=== PATIENT | male | born 1985 | race Caucasian/White ===

== ENCOUNTER 2021-01-12 18:26 | Emergency (ER) | payer OTHER ==
[~2021-01-12] VITALS: Ht 177.8 cm; Wt 93.9 kg
[2021-01-12 20:03] LABS: Basophils # (auto) 0.1 10 ^3/uL (0-0.2); Eosinophils # (auto) 0 10 ^3/uL (0-0.8); Eosinophils % (auto) 0.3 % (0.0-7.0); Hematocrit 48.6 % (41.0-53.0); Hemoglobin 16.6 g/dL (13.5-17.5); Lymphocytes # (auto) 2.3 10 ^3/uL (0.4-5.4); Lymphocytes % (auto) 24.6 % (10.0-50.0); Mean Corpuscular Hemoglobin 31.5 pg (28.0-32.0); Mean Corpuscular Hgb Conc. 34.2 g/dL (32.0-36.0); Monocytes # (auto) 0.9 10 ^3/uL (0-1.3); Monocytes % (auto) 9.9 % (0.0-12.0); Neutrophils # (auto) 5.9 10 ^3/uL (1.6-8.6); Neutrophils % (auto) 64.2 % (37.0-80.0); Nucleated Red Blood Cells % 0.1 %; Platelet Count (auto) 191 10^3/uL (140-450); Red Blood Cells 5.28 10^6/uL (4.5-5.90); Red Cell Distribution Width 13.6 % (11.8-14.3); White Blood Cell 9.2 10^3/uL (4.4-10.8)
[2021-01-12 20:13] LABS: Albumin 4.5 g/dL (3.4-5.0); Anion Gap 4 (5-15); Blood Urea Nitrogen 9 mg/dL (7-18); Calcium 10.8 mg/dL (8.5-10.1); Carbon Dioxide 30 mmol/L (21-32); Chloride 104 mmol/L (98-107); Glucose 104 mg/dL (74-106); Sodium 138 mmol/L (136-145)
[2021-01-12 20:21] LABS: Alanine Aminotransferase 39 U/L (16-61); Alkaline Phosphatase 60 U/L (45-117); Aspartate Aminotransferase 22 U/L (15-37); BUN/Creatinine Ratio 7.8; Bilirubin, Total 0.5 mg/dL (0.2-1.0); GFR African American 93 mL/min; GFR Non-African American 76 mL/min; Total Protein 8.2 g/dL (6.4-8.2)
[2021-01-13] MEDS ORDERED: ASPirin 325 MG TAB PO ONE
[2021-01-13 00:36] LABS: INR 1.07 (0.9-1.15)
[2021-01-13 01:02] LABS: Urine WBC None Seen /hpf (0 - 3)
[2021-01-13] MEDS ORDERED: KETOROLAC TROMETH 60MG/2ML VIAL IM ONE (01:15)
[2021-01-13] MEDS ORDERED: fentaNYL CITRATE 100 MCG/2 ML VL IM ONE (01:15)
[2021-01-13 01:37] LABS: Alcohol, Urine < 3.0 mg/dL (0-10); Amphetamine Screen, Urine NEGATIVE (NEGATIVE); Barbiturate Scree,Urine NEGATIVE (NEGATIVE); Benzodiazephine Screen, Urine NEGATIVE (NEGATIVE); Cocaine Screen, Urine NEGATIVE (NEGATIVE); Phencyclidine Screen, Urine NEGATIVE (NEGATIVE)
[2021-01-13 01:42] LABS: Urine Bacteria NONE SEEN /hpf (None Seen); Urine Blood Negative /uL (Negative); Urine Mucus FEW (None Seen); Urine Specific Gravity 1.013 (1.001-1.035)
[2021-01-13 01:45] LABS: Cannabinoid Screen, Urine POSITIVE (NEGATIVE); Opiate Scree,Urine NEGATIVE (NEGATIVE)
[2021-01-13 01:47] VITALS: BP 97/61
== END 2021-01-13 04:26 | disposition home or self-care (01) ==
LOC: ER 18:29
DX: R07.89 Other chest pain (principal); E11.9 Type 2 diabetes mellitus without complications; R42 Dizziness and giddiness; F12.10 Cannabis abuse, uncomplicated
CPT/HCPCS: 36415; 71045; 71046; 80053; 80307; 81001; 84484; 85025; 85610; 93005; J1885

== ENCOUNTER 2024-08-01 10:19 | Emergency (ER) | payer SELFPAY ==
[~2024-08-01] VITALS: Ht 177.8 cm; Wt 77.2 kg
[2024-08-01 10:54] VITALS: PULSE 76; RESP 18; O2SAT 96
[2024-08-01] MEDS: SODIUM CHLORIDE 0.9% 1,000 ML IVB ONE (10:56)
[2024-08-01] MEDS: ONDANSETRON HCL 4 MG/2 ML VIAL IV ONE (10:56)
[2024-08-01 11:06] LABS: Basophils # (auto) 0 10 ^3/uL (0-0.2); Basophils % (auto) 0.4 % (0.0-2.0); Eosinophils # (auto) 0 10 ^3/uL (0-0.8); Hematocrit 49.6 % (41.0-53.0); Hemoglobin 16.9 g/dL (13.5-17.5); Lymphocytes # (auto) 1.3 10 ^3/uL (0.4-5.4); Lymphocytes % (auto) 13.1 % (10.0-50.0); Mean Corpuscular Hemoglobin 32.2 pg (28.0-32.0); Mean Corpuscular Hgb Conc. 34.1 g/dL (32.0-36.0); Mean Corpuscular Volume 94.5 fL (80.0-100.0); Monocytes # (auto) 1.5 10 ^3/uL (0-1.3); Monocytes % (auto) 14.7 % (0.0-12.0); Neutrophils # (auto) 7.4 10 ^3/uL (1.6-8.6); Neutrophils % (auto) 71.8 % (37.0-80.0); Nucleated Red Blood Cells % 0.1 %; Platelet Count (auto) 191 10^3/uL (140-450); Red Blood Cells 5.25 10^6/uL (4.5-5.90); Red Cell Distribution Width 13.6 % (11.8-14.3); White Blood Cell 10.3 10^3/uL (4.4-10.8)
[2024-08-01 11:23] LABS: Alanine Aminotransferase 29 U/L (7-40); Albumin 4.6 g/dL (3.2-4.8); Alkaline Phosphatase 81 U/L (46-116); Anion Gap 6 (5-15); Aspartate Aminotransferase 30 U/L (13-40); BUN/Creatinine Ratio 6.8 (10.0-20.0); Blood Urea Nitrogen 7 mg/dL (9-23); Calcium 9.6 mg/dL (8.7-10.4); Carbon Dioxide 28 mmol/L (20-31); Chloride 102 mmol/L (98-107); Glucose 114 mg/dL (74-106); Lipase 44 U/L (12-53); Magnesium 2.1 mg/dL (1.6-2.6); Sodium 136 mmol/L (136-145)
[2024-08-01 11:24] LABS: Bilirubin, Total 0.3 mg/dL (0.2-1.0); Total Protein 7.3 g/dL (5.7-8.2)
[2024-08-01 12:15] LABS: Urine Bacteria None Seen /hpf (None Seen)
[2024-08-01 12:36] LABS: Urine Blood Negative /uL (Negative); Urine Clarity Clear (Clear); Urine Color Yellow (Yellow); Urine Mucus FEW (None Seen); Urine Protein, UAD 1+ (Negative); Urine Urobilinogen Normal (Negative); Urine WBC 1 /hpf (0 - 3)
[2024-08-01 12:42] LABS: Amphetamine Screen, Urine Pos (NEGATIVE); Barbiturate Scree,Urine Neg (NEGATIVE); Benzodiazephine Screen, Urine Neg (NEGATIVE); Cocaine Screen, Urine Pos (NEGATIVE)
[2024-08-01 12:43] LABS: Cannabinoid Screen, Urine Pos (NEGATIVE); Opiate Scree,Urine Neg (NEGATIVE)
[2024-08-01 12:44] LABS: Phencyclidine Screen, Urine Neg (NEGATIVE)
[2024-08-01 12:54] LABS: COVID19 ANTIGEN SOFIA FIA NEGATIVE (NEGATIVE)
[2024-08-01 12:55] LABS: Rapid Influenza A Negative (Negative); Rapid Influenza B Negative (Negative)
[2024-08-01] MEDS ORDERED: ACET-1080 PO (13:14)
[2024-08-01] MEDS ORDERED: LORA-655 PO (13:14)
[2024-08-01] MEDS ORDERED: PROC10TA6 PO (13:14)
[2024-08-01] MEDS ORDERED: BACDST PO (13:14)
[2024-08-01 13:33] VITALS: BP 142/87; PULSE 78; RESP 17; TEMP 98.7; O2SAT 97
== END 2024-08-01 13:34 | disposition home or self-care (01) ==
LOC: ER 10:19
DX: K52.9 Noninfective gastroenteritis and colitis, unspecified (principal); J01.10 Acute frontal sinusitis, unspecified; E86.0 Dehydration; F15.90 Other stimulant use, unspecified, uncomplicated; F12.10 Cannabis abuse, uncomplicated
CPT/HCPCS: 36415; 70210; 71046; 80053; 80307; 81001; 83690; 83735; 85025; 87426; 87804; 96361; 96374; 99284; J2405; J7030

== ENCOUNTER 2024-10-03 07:01 | Emergency (ER) | payer MEDICAID, OTHER ==
[~2024-10-03] VITALS: Ht 177.8 cm; Wt 88.6 kg
[~2024-10-03 07:01] MED LIST: ACET-1080 PO; BACDST PO; LORA-655 PO; PROC10TA6 PO
--- NOTE | 2024-10-03 07:32 | ED.PDOC ---
History of Present Illness HPI Comments 39 y/o M, with a Hx of liver cirrhosis, right shoulder Sx, and polysubstance abuse, presents with c/o right-lower chest wall/rib pain for 1x day, today. Patient endorses on onset of symptoms following swinging a bat, yesterday, and hitting it, while still holding onto it, against a metal pole. Patient comments on pain being constant since then. He states on no additional relevant or pertinent Hx along with any recent stressors, additional injuries, strenuous activities, travel, sick contact, or substance use/exposure. He denies having any palpitations, arm pain, shortness of breath, nausea, vomiting, fever, chills, or other associated symptoms or modifiers at this time. Chief Complaint: Chest Wall Injury Time Seen by MD: 07:20 Primary Care Provider: UNKNOWN Reviewed Notes: Nurses Notes, Medications, Allergies Allergies: Coded Allergies: No Known Drug Allergy (Verified Allergy, Unknown, 01/12/21) Home Meds Active Scripts Lorazepam (Ativan) 0.5 Mg Tab, 1 TAB PO BID for 5 Days, #10 TAB Prov:PRIYANKA CHEW MD 08/01/24 Acetaminophen (Tylenol 8 Hour Arthritis) 650 Mg Tab, 650 MG PO QID for 5 Days, #20 TAB Prov:PRIYANKA CHEW MD 08/01/24 Sulfamethoxazole W/Trimethopri (Bactrim Ds Tablet) 1 Tab Tb, 1 TAB PO BID for 10 Days, #20 TAB Prov:PRIYANKA CHEW MD 08/01/24 Prochlorperazine Maleate (Compazine) 10 Mg Tb, 1 TAB PO Q6HR for 5 Days, #20 TAB 3 Refills Prov:PRIYANKA CHEW MD 08/01/24 Information Source: Patient Mode of Arrival: Ambulatory Severity: Moderate Timing: Days Duration: Since onset Prehospital treatment: None Past Medical History PAST MEDICAL HISTORY: Liver (cirrhosis ) Surgical History: Denies all surgeries Family History Family History: Unknown Social History Smoker: Cigarettes Alcohol: Sober Drugs: Denies Drug Use (former polysubstance use ), Cocaine, Marijuana, Methamphetamine Lives In: Home Cardiovascular: reports: chest pain (right lower chest wall pain ) Musculoskeletal: reports: others (right rib pain ) All Other Systems: Reviewed and Negative (negative unless otherwise stated in HPI) Physical Exam General Appearance: Moderate Distress HEENT: Normal ENT Inspection, PERRL/EOMI Neck: Full Range of Motion, Non-Tender Respiratory: Decreased Breath Sounds, No Respiratory Distress, Other (Severe pain right anterior ribs mostly on inspiration expiration after playing baseball) Cardiovascular: No Edema, No JVD, No Murmur, No Gallop, Normal Peripheral Pulses, Regular Rate/Rhythm Breast Exam: Deferred Gastrointestinal: No Organomegaly, Non Tender, No Pulsatile Mass, Normal Bowel Sounds, Soft Genitalia: Deferred Pelvic: Deferred Rectal: Deferred Extremities: No calf tenderness, Normal capillary refill, Normal inspection, Normal range of motion, Non-tender, No pedal edema Neurologic: Alert, cabin outfitter II-XII nml as Tested, No Motor Deficits, Normal Affect, Normal Mood, No Sensory Deficits Cerebellar Function: Normal Reflexes: Normal Skin: Dry, Normal Color, Warm Peripheral Pulses: 1+ carotid (R), 1+ carotid (L) Lymphatic: No Adenopathy Was a procedure done? Was a procedure done?: No EKG EKG : Pulse Rate (adult): 79 [place]: Normal Cardiac Rhythm: NSR Block: None Hypertrophy: None ST: Normal Differential Dx Considerations may include: musculoskeletal pain, costochondritis, [place], PE, ACS, angina, anxiety X-Ray, Labs, Meds, VS Vital Signs Date Time Temp Pulse Resp B/P (MAP) Pulse Ox O2 Delivery O2 Flow Rate FiO2 10/03/24 09:05 77 16 95 Room Air* 0 21 10/03/24 09:05 77 16 116/63 (80) 95 10/03/24 07:32 79 10/03/24 07:08 98.2 84 20 130/54 (79) 99 10/03/24 07:02 79 Lab Test 10/03/24 07:55 10/03/24 07:07 Range/Units Troponin I High Sensitivity < 3 L < 3 L </=54 ng/L White Blood Count 7.5 4.4-10.8 10^3/uL Red Blood Count 4.79 4.5-5.90 10^6/uL Hemoglobin 15.4 13.5-17.5 g/dL Hematocrit 45.7 41.0-53.0 % Mean Corpuscular Volume 95.4 80.0-100.0 fL Mean Corpuscular Hemoglobin 32.2 H 28.0-32.0 pg Mean Corpuscular Hemoglobin Concent 33.7 32.0-36.0 g/dL Red Cell Distribution Width 14.7 H 11.8-14.3 % Platelet Count 235 140-450 10^3/uL Mean Platelet Volume 8.1 6.9-10.8 fL Neutrophils (%) (Auto) 48.5 37.0-80.0 % Lymphocytes (%) (Auto) 30.0 10.0-50.0 % Monocytes (%) (Auto) 17.5 H 0.0-12.0 % Eosinophils (%) (Auto) 3.0 0.0-7.0 % Basophils (%) (Auto) 1.0 0.0-2.0 % Neutrophils # (Auto) 3.7 1.6-8.6 10 ^3/uL Lymphocytes # (Auto) 2.3 0.4-5.4 10 ^3/uL Monocytes # (Auto) 1.3 0-1.3 10 ^3/uL Eosinophils # (Auto) 0.2 0-0.8 10 ^3/uL Basophils # (Auto) 0.1 0-0.2 10 ^3/uL Nucleated Red Blood Cells 0.1 % Prothrombin Time 10.6 9.3-11.8 sec Prothrombin Time INR 1.00 0.9-1.15 Activated Partial Thromboplast Time 29.1 24.5-34.5 SEC Sodium Level 140 136-145 mmol/L Potassium Level 4.5 3.5-5.1 mmol/L Chloride Level 109 H 98-107 mmol/L Carbon Dioxide Level 28 20-31 mmol/L Anion Gap 3 L 5-15 Blood Urea Nitrogen 9 9-23 mg/dL Creatinine 1.05 0.700-1.30 mg/dL Glomerular Filtration Rate Calc 92 >90 mL/min BUN/Creatinine Ratio 8.6 L 10.0-20.0 Serum Glucose 97 74-106 mg/dL Calcium Level 9.7 8.7-10.4 mg/dL Magnesium Level 2.1 1.6-2.6 mg/dL Total Bilirubin 0.4 0.2-1.0 mg/dL Aspartate Amino Transferase (AST) 15 13-40 U/L Alanine Aminotransferase (ALT) 26 7-40 U/L Alkaline Phosphatase 79 46-116 U/L B-Type Natriuretic Peptide 14.08 0-100 pg/mL Total Protein 6.8 5.7-8.2 g/dL Albumin 4.2 3.2-4.8 g/dL Current Medications Medications (Trade) Dose Ordered Sig/Vani Route Start Time Stop Time Status Last Admin Ketorolac Tromethamine (Toradol Injection) 30 mg ONCE ONCE IV 10/03/24 07:45 10/03/24 07:46 DC 10/03/24 09:00 Sodium Chloride 1,000 ml @ 150 mls/hr Q6H40M ONCE IV 10/03/24 07:45 10/03/24 14:24 10/03/24 09:03 R RIB XR:FINDINGS: Medical devices: None. Cardiomediastinal: The heart is normal in size. Pulmonary vasculature is within normal limits. Atherosclerotic calcification of the aortic arch noted. Lungs: No focal pulmonary opacity is seen. The costophrenic angles are clear. No pneumothorax. Bones/soft tissues: No acute abnormality is noted. No acute rib fracture noted. Incidentally noted is a subcentimeter osteochondroma arising from lateral cortex of mid humeral shaft. IMPRESSION: 1. No acute cardiopulmonary disease. X-Ray, Labs, Meds, VS Comment In the emergency department eventful patient came in complaining of chest pain mostly chest wall and ribs after he was playing baseball The chest x-ray is negative no rib fractures EKG shows normal sinus rhythm at 79 CBC normal CMP negative BNP 14 Troponin three and three Magnesium 2.1 INR 1.00 Patient will be discharged home to follow up with his PCP Time of 1ST Reevaluation: 07:50 Reevaluation 1ST: Unchanged Time of 2ND Reevaluation: 12:50 Reevaluation 2ND: Improved Consultation: PCP Patient Education/Counseling: Diagnosis, Treatment, Prognosis, Need For Follow Up Family Education/Counseling: Diagnosis, Treatment, Prognosis, Need For Follow Up, No Family Present Departure 1 Departure Time of Disposition: 12:51 Impression: Primary Impression: Contusion of rib on right side Qualified Codes: S20.211A - Contusion of right front wall of thorax, initial encounter Disposition: HOME / SELF CARE / HOMELESS Condition: Fair Additional Instructions: Local heat and follow up with the PCP e-Prescriptions Tramadol HCl (Tramadol HCl) 50 Mg Tab 50 MG PO BID for 10 Days, #20 TAB Prov: PRIYANKA CHEW MD 10/03/24 Cyclobenzaprine Hcl (Cyclobenzaprine Hcl) 10 Mg Tab 10 MG PO TID for 10 Days, #30 TAB Prov: PRIYANKA CHEW MD 10/03/24 Diclofenac Potassium (Diclofenac Potassium) 50 Mg Tab 1 TAB PO TIDP for 10 Days, #30 TAB Prov: PRIYANKA CHWE MD 10/03/24 Discharged With: Self Critical Care Note Critical Care Time?: No Stability Stability form required: No Heart Score Heart Score: Heart Score Response (Comments) Value History Slightly Suspicious 0 EKG Normal 0 Age <45 0 Risk Factors 1 or 2 risk factors 1 Troponin Normal limit 0 Total 1 I personally scribed for PRIYANKA CHEW MD ([email or web address]) on 10/03/24 at 07:32. Electronically submitted by Cyrus Suh ([email or web address]). I personally scribed for PRIYANKA CHEW MD ([email or web address]) on 10/03/24 at 08:58. Electronically submitted by Cyrus Suh ([email or web address]). I personally scribed for PRIYANKA CHEW MD ([email or web address]) on 10/03/24 at 08:59. Electronically submitted by Cyrus Suh ([email or web address]). I personally scribed for PRIYANKA CHEW MD ([email or web address]) on 10/03/24 at 09:03. Electronically submitted by Cyrus Suh ([email or web address]). PRIYANKA CHEW MD Oct 03, 2024 07:32
[2024-10-03 07:34] LABS: Basophils # (auto) 0.1 10 ^3/uL (0-0.2); Eosinophils # (auto) 0.2 10 ^3/uL (0-0.8); Hematocrit 45.7 % (41.0-53.0); Hemoglobin 15.4 g/dL (13.5-17.5); Lymphocytes # (auto) 2.3 10 ^3/uL (0.4-5.4); Mean Corpuscular Hemoglobin 32.2 pg (28.0-32.0); Mean Corpuscular Hgb Conc. 33.7 g/dL (32.0-36.0); Mean Corpuscular Volume 95.4 fL (80.0-100.0); Monocytes # (auto) 1.3 10 ^3/uL (0-1.3); Monocytes % (auto) 17.5 % (0.0-12.0); Neutrophils # (auto) 3.7 10 ^3/uL (1.6-8.6); Neutrophils % (auto) 48.5 % (37.0-80.0); Nucleated Red Blood Cells % 0.1 %; Platelet Count (auto) 235 10^3/uL (140-450); Red Blood Cells 4.79 10^6/uL (4.5-5.90); Red Cell Distribution Width 14.7 % (11.8-14.3); White Blood Cell 7.5 10^3/uL (4.4-10.8)
[2024-10-03 07:41] LABS: Partial Thromboplastin Time 29.1 SEC (24.5-34.5); Prothrombin Time 10.6 sec (9.3-11.8)
[2024-10-03 07:42] LABS: Alanine Aminotransferase 26 U/L (7-40); Albumin 4.2 g/dL (3.2-4.8); Alkaline Phosphatase 79 U/L (46-116); Anion Gap 3 (5-15); Aspartate Aminotransferase 15 U/L (13-40); BUN/Creatinine Ratio 8.6 (10.0-20.0); Bilirubin, Total 0.4 mg/dL (0.2-1.0); Blood Urea Nitrogen 9 mg/dL (9-23); Calcium 9.7 mg/dL (8.7-10.4); Carbon Dioxide 28 mmol/L (20-31); Glucose 97 mg/dL (74-106); Magnesium 2.1 mg/dL (1.6-2.6); Potassium 4.5 mmol/L (3.5-5.1); Sodium 140 mmol/L (136-145); Total Protein 6.8 g/dL (5.7-8.2)
[2024-10-03 07:56] LABS: Chloride 109 mmol/L (98-107)
--- NOTE | 2024-10-03 08:38 | DVH ---
Procedure: XY R RIB XRAY 10/03/2024 07:58 AM Indication: possible fxrt ant ribs Comparison: None TECHNIQUE: XY R RIB XRAY FINDINGS: Medical devices: None. Cardiomediastinal: The heart is normal in size. Pulmonary vasculature is within normal limits. Athero sclerotic calcification of the aortic arch noted. Lungs: No focal pulmonary opacity is seen. The costophrenic angles are clear. No pneumothorax. Bones/soft tissues: No acute abnormality is noted. No acute rib fracture noted. Incidentally noted is a subcentimeter osteochondroma arising from lateral cortex of mid humeral shaft. IMPRESSION: 1. No acute cardiopulmonary disease.
[2024-10-03] MEDS: KETOROLAC TROMETH 30 MG/ML 1ML VIAL IV ONE (09:00)
[2024-10-03] MEDS: SODIUM CHLORIDE 0.9% 1,000 ML IV ONE (09:03)
[2024-10-03 09:05] VITALS: PULSE 77; RESP 16; O2SAT 95
[2024-10-03] MEDS ORDERED: CYCL-839 PO (12:54)
[2024-10-03] MEDS ORDERED: TRAM-626 PO (12:54)
[2024-10-03] MEDS ORDERED: DICL50TA2 PO (12:54)
[2024-10-03 12:57] VITALS: BP 137/97; PULSE 78; RESP 17; TEMP 98.7; O2SAT 97
--- NOTE | 2024-10-03 14:48 | ECG ---
[facility] [place]24-10-03 Test Time: 07:02:45 Pat Name: BETSY RESENDIZ Department: ED Room: Gender: M Lard Maker: ROBIN : 1985 Requested By: PRIYANKA CHEW Order Number: [id number] Reading MD: Sae Blanton Measurements Intervals [place] Rate: 79 P: 85 CA: 121 QRS: 78 QRSD: 96 T: 50 QT: 378 QTc: 434 Interpretive Statements Sinus rhythm RSR' in V1 or V2, probably normal variant Baseline wander in lead(s) II,III,aVF Electronically Signed On 10-07-2024 12:34:55 PST by Sae Blanton Please click the below link to view image of tracing.
== END 2024-10-03 13:03 | disposition home or self-care (01) ==
LOC: ER 07:01
DX: S20.211A Contusion of right front wall of thorax, initial encounter (principal); F17.210 Nicotine dependence, cigarettes, uncomplicated; Z79.899 Other long term (current) drug therapy; W22.09XA Striking against other stationary object, initial encounter; Y93.64 Activity, baseball; Y92.89 Other specified places as the place of occurrence of the external cause; Y99.8 Other external cause status
CPT/HCPCS: 36415; 71101; 80053; 83735; 83880; 84484; 85025; 85610; 85730; 93005; 96361; 96374; 99285; J1885; J7030